=== PATIENT | male | born 1950 | race Caucasian/White ===

== ENCOUNTER 2023-06-18 18:23 | Emergency (ER) | payer BC ==
[~2023-06-18] VITALS: Ht 172.7 cm; Wt 99.8 kg
[~2023-06-18 18:23] MED LIST: B/P MED; CHOLESTEROL MED
[2023-06-18 18:30] VITALS: BP_SYST 138; PULSE 73; RESP 19; TEMP 97.8; O2SAT 96
[2023-06-18 19:08] LABS: COVID19 ANTIGEN SOFIA FIA NEGATIVE (NEGATIVE)
[2023-06-18 19:09] LABS: INFLUENZA TYPE A Negative (NEGATIVE); INFLUENZA TYPE B NEGATIVE (NEGATIVE)
[2023-06-18] MEDS ORDERED: GUAI5LIQ13 PO (20:38)
[2023-06-18 20:48] VITALS: BP_SYST 144; PULSE 94; RESP 18; TEMP 97.8; O2SAT 95
== END 2023-06-18 20:18 | disposition home or self-care (01) ==
LOC: SED 18:23
DX: J06.9 Acute upper respiratory infection, unspecified (principal); B97.89 Other viral agents as the cause of diseases classified elsewhere; I10 Essential (primary) hypertension; J44.9 Chronic obstructive pulmonary disease, unspecified; E78.5 Hyperlipidemia, unspecified; Z20.822 Contact with and (suspected) exposure to COVID-19
CPT/HCPCS: 36415; 71045; 99284